=== PATIENT | male | born 2000 | race Caucasian/White ===

== ENCOUNTER 2018-08-13 23:54 | Emergency (ER) | payer MEDICAID ==
[2018-08-14] MEDS ORDERED: SODIUM CHLORIDE 0.9% 1,000 ML IV ONE (00:47)
[2018-08-14] MEDS ORDERED: KETOROLAC 30 MG/ML VIAL IVP STA (00:48)
[2018-08-14] MEDS ORDERED: LORazepam 2 MG/ML VIAL IVP STA (00:48)
[2018-08-14] MEDS ORDERED: PROMETHAZINE INJ 12.5 MG in SODIUM CHLORIDE 0.9% 50 ML IV STA (00:49)
[2018-08-14 01:18] LABS: BASOPHILS # (AUTO) 0.1 10^3/uL (0.0-0.1); EOSINOPHILS # (AUTO) 0.2 10^3/uL (0.0-0.7); EOSINOPHILS % (AUTO) 2.8 %; HGB - HEMOGLOBIN 14.1 g/dL (14.0-18.0); LYMPHOCYTES # (AUTO) 2.4 10^3/uL (1.5-3.5); LYMPHOCYTES % (AUTO) 27.3 %; MEAN CORPUSCULAR HGB CONC 35.2 g/dL (32.0-36.0); MEAN CORPUSCULAR VOLUME 88.2 fL (80.0-94.0); MEAN PLATELET VOLUME 7.5 fL (7.4-11.4); MONOCYTES # (AUTO) 0.6 10^3/uL (0.0-1.0); MONOCYTES % (AUTO) 7.3 %; NEUTROPHILS # (AUTO) 5.5 10^3/uL (1.5-6.6); NEUTROPHILS % (AUTO) 61.6 %; PLT - PLATELET COUNT 271 10^3/uL (130-450); RED BLOOD COUNT 4.53 10^6/uL (4.70-6.10); RED CELL DISTRIBUTION WIDTH 12.8 % (12.0-15.0); WHITE BLOOD COUNT 8.9 x10^3/uL (4.8-10.8)
[2018-08-14 01:29] LABS: ALBUMIN 3.5 g/dL (3.2-5.5); ALBUMIN/GLOBULIN RATIO 1.1 (1.0-2.2); BILIRUBIN,TOTAL 0.3 mg/dL (0.2-1.0); CALCIUM 8.9 mg/dL (8.5-10.3); CREATININE 0.6 mg/dL (0.6-1.2); TOTAL PROTEIN 6.7 g/dL (6.7-8.2)
[2018-08-14 01:37] LABS: MUDS CUTOFF CONCENTRATIONS CUTOFF CONC BELOW:
[2018-08-14 01:49] LABS: AMPHETAMINE SCREEN,URINE NEGATIVE (NEGATIVE); BENZODIAZEPINES SCREEN, URINE NEGATIVE (NEGATIVE); COCAINE SCREEN URINE NEGATIVE (NEGATIVE); METHADONE SCREEN, URINE NEGATIVE (NEGATIVE); METHAMPHETAMINES SCREEN, URINE NEGATIVE (NEGATIVE); OPIATE SCREEN, URINE NEGATIVE (NEGATIVE); OXYCODONE SCREEN, URINE NEGATIVE (NEGATIVE); PROPOXYPHENE SCREEN, URINE NEGATIVE (NEGATIVE); TRICYCLIC ANTIDEPRESSANT,URINE NEGATIVE (NEGATIVE)
[2018-08-14] MEDS ORDERED: ACETAMINOPHEN 325 MG TABLET PO STA (01:56)
--- NOTE | 2018-08-14 02:05 | ED Physician Documentation ---
History of Present Illness - Stated complaint Stated Complaint: WITHDRAWAL - Chief complaint Chief Complaint: General - History obtained from History obtained from: Patient, Family (Father) - Additonal information Additional information: The patient is a 17-year-old old male who complains of generalized headache, nausea and vomiting, and generalized abdominal discomfort. His symptoms started several hours ago. 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 He last used 6 days ago. 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 He denies history of similar symptoms in the past. He is accompanied by his father who is supportive. The patient sought help from his father in getting clean from methamphetamine and heroin. He denies IV drug use, stating he smokes it. Review of Systems Constitutional: denies: Fever Eyes: denies: Irritation Ears: denies: Tinnitus/ringing Nose: denies: Congestion Throat: denies: Sore throat Cardiac: denies: Chest pain / pressure Respiratory: denies: Dyspnea, Cough GI: reports: Abdominal Pain, Nausea, Vomiting. denies: Diarrhea : denies: Dysuria Skin: denies: Rash Musculoskeletal: denies: Back pain Neurologic: reports: Headache. denies: Focal weakness, Numbness PD PAST MEDICAL HISTORY - Past Medical History Past Medical History: No Cardiovascular: None Respiratory: None Neuro: None Endocrine/Autoimmune: None GI: None : None HEENT: None Psych: None Musculoskeletal: None Derm: None Other Past Medical History: DENIES - Past Surgical History Past Surgical History: No - Present Medications Home Medications: Ambulatory Orders Medication Instructions Recorded Confirmed Promethazine [Phenergan] 25 mg PO Q6H PRN #10 tab 08/14/18 - Allergies Allergies/Adverse Reactions: Allergies Allergy/AdvReac Type Severity Reaction Status Date / Time No Known Drug Allergies Allergy Verified 08/14/18 00:02 - Social History Does the pt smoke?: Yes Smoking Status: Current every day smoker Does the pt drink ETOH?: Yes Does the pt have substance abuse?: Yes Substance Use and Type: Marijuana, Meth, Heroin - Immunizations Immunizations are current?: No Immunizations: No immun PD ED PE NORMAL - Vitals Vital signs reviewed: Yes (normal) - General General: Alert and oriented X 3, Well developed/nourished - HEENT HEENT: Atraumatic, PERRL, EOMI, Moist mucous membranes, Pharynx benign - Neck Neck: Supple, no meningeal sign, No adenopathy, No JVD - Cardiac Cardiac: RRR, No murmur - Respiratory Respiratory: No respiratory distress, Clear bilaterally - Abdomen Abdomen: Soft, Non tender, Other (Scaphoid abdomen.) - Back Back: No CVA TTP - Derm Derm: No rash - Extremities Extremities: No edema, No calf tenderness / cord, Other (No needle tracks.) - Neuro Neuro: Alert and oriented X 3, No motor deficit, No sensory deficit, Normal speech Results - Vitals Vitals: Vital Signs - 24 hr 08/13/18 08/14/18 08/14/18 23:55 00:32 01:49 Temperature 36.5 C Heart Rate 85 88 91 Respiratory 16 16 16 Rate Blood Pressure 126/77 126/68 128/64 O2 Saturation 99 98 98 Oxygen O2 Source Room air - Labs Labs: Laboratory Tests 08/14/18 08/14/18 08/14/18 01:00 01:00 01:30 WBC 8.9 RBC 4.53 L Hgb 14.1 Hct 40.0 L MCV 88.2 MCH 31.0 MCHC 35.2 RDW 12.8 Plt Count 271 MPV 7.5 Neut # (Auto) 5.5 Lymph # (Auto) 2.4 Bea[place]gard # (Auto) 0.6 Eos # (Auto) 0.2 Baso # (Auto) 0.1 Absolute Nucleated RBC 0.01 Nucleated RBC % 0.1 Sodium 136 Potassium 3.9 Chloride 98 L Carbon Dioxide 25 Anion Gap 13.0 BUN 12 Creatinine 0.6 Estimated GFR (MDRD) 174 Glucose 110 H Calcium 8.9 Total Bilirubin 0.3 AST 44 H ALT 47 Alkaline Phosphatase 86 Total Protein 6.7 Albumin 3.5 Globulin 3.2 Albumin/Globulin Ratio 1.1 Lipase 24 Urine Opiates Screen NEGATIVE Ur Oxycodone Screen NEGATIVE Urine Methadone Screen NEGATIVE Ur Propoxyphene Screen NEGATIVE Ur Barbiturates Screen NEGATIVE Ur Tricyclics Screen NEGATIVE Ur Phencyclidine Scrn NEGATIVE Ur Amphetamine Screen NEGATIVE U Methamphetamines Scrn NEGATIVE U Benzodiazepines Scrn NEGATIVE Urine Cocaine Screen NEGATIVE U Cannabinoids Screen NEGATIVE PD MEDICAL DECISION MAKING - ED course Complexity details: reviewed results, re-evaluated patient, considered differential, d/w patient, d/w family ED course: The patient's presentation is most consistent with symptoms of withdrawal from recreational drugs. There is no clinical evidence of an acute abdomen, and his CBC and chemistry panel are unremarkable. Urine drug screen is negative for all drugs tested. Treatment in the emergency department included administration of normal saline 1 L IV, Toradol 30 mg IV, Phenergan 12.5 mg IV, and Ativan 1 mg IV. He felt subjectively improved after this treatment. He is being discharged with a prescription for Phenergan. I discussed with him and his father the expected course of illness, the importance of outpatient drug treatment, as well as potentially worrisome signs or symptoms that should prompt reevaluation in the emergency department. He is given a list of potential outpatient resources for treatment of substance abuse. Departure - Departure Disposition: 01 Home, Self Care Clinical Impression: Withdrawal from recreational drug Condition: Stable Instructions: ED Withdrawal Narcotic Follow-Up: [facility] [Provider Group] Prescriptions: Promethazine [Phenergan] 25 mg PO Q6H PRN #10 tab PRN Reason: Nausea / Vomiting Comments: Refrain from methamphetamine, heroin, and other drugs of abuse. Drink plenty of fluids. You can use Phenergan as prescribed if needed for nausea. Schedule follow-up for outpatient drug counseling. Follow-up with primary clinic within 2 weeks if possible. Call to schedule appointment. Return to the emergency department if you develop increasing abdominal pain, persistent vomiting, or otherwise worsening symptoms.
[2018-08-14 02:16] VITALS: BP 115/59
== END 2018-08-14 02:16 | disposition home or self-care (01) ==
LOC: ED 23:54
DX: F11.23 Opioid dependence with withdrawal (principal); F15.93 Other stimulant use, unspecified with withdrawal; F17.200 Nicotine dependence, unspecified, uncomplicated
CPT/HCPCS: 36415; 80053; 80306; 83690; 85025; 96361; 96365; 96375; 99283; 99284; A9270; J2060; J7040